=== PATIENT | female | born 1965 | race Caucasian/White ===

== ENCOUNTER 2016-06-16 20:51 | Emergency (ER) | payer SELFPAY ==
[~2016-06-16] VITALS: Ht 157.5 cm; Wt 61.4 kg
[2016-06-17 03:20] VITALS: BP 164/91
== END 2016-06-17 03:21 | disposition home or self-care (01) ==
LOC: ER 20:52
DX: S91.052A Open bite, left ankle, initial encounter (principal); S71.152A Open bite, left thigh, initial encounter; R01.1 Cardiac murmur, unspecified; Z98.890 Other specified postprocedural states; W54.0XXA Bitten by dog, initial encounter; Y93.89 Activity, other specified; Y92.89 Other specified places as the place of occurrence of the external cause
CPT/HCPCS: 99283; J7030; X7700; Z7610